=== PATIENT | male | born 1990 | race Caucasian/White ===

== ENCOUNTER 2017-11-21 10:36 | Outpatient (CLI) | payer MEDICAID ==
--- NOTE | 2017-11-21 13:03 | RAD ---
LUMBAR SPINE SIX VIEWS: HISTORY: Panniculitis affecting regions. Back pain. FINDINGS: There are five lumbar type vertebral bodies. Lumbar spine vertebral body height is maintained. Disk space heights are preserved. No spondylolisthesis or spondylosis. No abnormal alignment upon flexi on or extension. Straightening of normal lumbar lordosis in the neutral position is presumed to be p atient position or spasm. IMPRESSION: Unremarkable lumbar spine radiographs. POS: [facility]
== END 2017-11-21 10:37 | disposition home or self-care (01) ==
LOC: RAD 10:36
PROVIDERS: ATTEND Specialist
DX: M54.9 Dorsalgia, unspecified (principal)
CPT/HCPCS: 72100